=== PATIENT | female | born 1995 | race Caucasian/White ===

== ENCOUNTER 2016-09-19 10:53 | Emergency (ER) | payer OTHER ==
[2016-09-19 11:15] VITALS: O2SAT 100
[2016-09-19] MEDS ORDERED: NORCO 5/325 MG PO ONE (11:15)
[2016-09-19] MEDS ORDERED: NORCO 5/325 MG ONE (11:33)
--- NOTE | 2016-09-19 11:59 | ERPHSYRPT ---
- History of Present Illness Time Seen by Provider: 09/19/16 11:11 Source: patient Patient Subjective Stated Complaint: PT WAS SPEED WALKING AND NOW HAS PAIN TO RIGHT LOWER LEG, Triage Nursing Assessment: NO REDDNESS OR SWELLING TO LEG, WAS ABLE TO WALK IN. Physician History: CC: left leg pain Hx: 21 y/o patient was speed walking 2 days ago and felt pain in left leg. The pain continues and is in lower leg below knee. No other specific injury. Hurts to walk. States no prior hx of this. Not . Pain is moderately severe and worse with movement. Allergies/Adverse Reactions: Penicillins Allergy (Intermediate, Verified 09/19/16 11:16) Hives Home Medications: [id number] Estr/Ethin Estra [Seasonique 0.15-0.03-0.01 Tab] 1 each PO DAILY 12/17/13 [History] Albuterol 17 gm IH Q4HPRN PRN 12/18/13 [History] Dicyclomine HCl 20 mg [Bentyl 20 mg] 20 mg PO TID 12/01/14 [History] Topiramate [Topamax] 1 tab PO DAILY 07/22/16 [History] Hx Tetanus, Diphtheria Vaccination/Date Given: Yes Hx Influenza Vaccination/Date Given: Yes Hx Pneumococcal Vaccination/Date Given: No Immunizations Up to Date: Yes - Review of Systems Constitutional: No Fever, No Chills Respiratory: No Dyspnea Cardiac: No Chest Pain Musculoskeletal: Injury (left lower leg), No Back Pain, No Neck Pain Skin: No Rash Neurological: No Focal Weakness, No Headache, No Parasthesia - Past Medical History Pertinent Past Medical History: Yes Neurological History: Migraines ENT History: No Pertinent History Cardiac History: No Pertinent History Respiratory History: Asthma Endocrine Medical History: No Pertinent History Musculoskeletal History: No Pertinent History GI Medical History: Irritable Bowel History: No Pertinent History Psycho-Social History: No Pertinent History Female Reproductive Disorders: No Pertinent History - Past Surgical History Past Surgical History: Yes Neuro Surgical History: No Pertinent History Cardiac: No Pertinent History Respiratory: No Pertinent History Gastrointestinal: No Pertinent History Genitourinary: No Pertinent History Musculoskeletal: Orthopedic Surgery Female Surgical History: No Pertinent History Other Surgical History: EGD, shoulder rotator cuff repair x2 - Social History Smoking Status: Never smoker Exposure to second hand smoke: No Drug Use: none Patient Lives Alone: No - Female History Hx Last Menstrual Period: JULY - Nursing Vital Signs Nursing Vital Signs: Initial Vital Signs Temperature 98.3 F Temperature Source Oral Pulse Rate 79 Respiratory Rate 18 Blood Pressure [Right Arm] 115/59 Pain Intensity 0 - Physical Exam General Appearance: alert Eyes, Ears, Nose, Throat Exam: moist mucous membranes Neck Exam: non-tender, supple Cardiovascular/Respiratory Exam: regular rate/rhythm Hips Exam: bilateral: non-tender, normal inspection Legs Exam: right leg: non-tender, normal inspection Knees Exam: bilateral knee: non-tender, normal inspection Ankle Exam: bilateral ankle: non-tender, normal inspection Foot Exam: bilateral foot: non-tender, normal inspection Neuro/Tendon Exam: normal sensation, normal motor functions Mental Status Exam: alert, oriented x 3, cooperative Skin Exam: warm, dry SpO2 Interpretation: normal SpO2: 100 Oxygen Delivery: Room Air Comments: tender left proximal calf, no erythema, no swelling. Achilles intact. Pain in calf with active plantar flexion. - Course Nursing assessment & vital signs reviewed: Yes - Radiology Exams left lower leg X-ray Interpretation: Discussed w/ radiologist, Negative Ordered Tests: Active Orders 24 hr Category Date Time Status Cold Application STAT Care 09/19/16 11:15 Active Splint STAT Care 09/19/16 11:17 Active LOWER LEG Stat Exams 09/19/16 11:15 Completed Medication Summary Discontinued Medications Generic Name Dose Route Start Last Admin Trade Name Adelfo PRN Reason Stop Dose Admin Hydrocodone Bitart/Acetaminophen 1 tab 09/19/16 11:15 09/19/16 11:33 [place] 5/325 Mg PO 09/19/16 11:16 1 tab STAT ONE Administration Hydrocodone Bitart/Acetaminophen Confirm 09/19/16 11:33 [place] 5/325 Mg Administered 09/19/16 11:34 Dose 1 tab .ROUTE .STK-MED ONE - Progress Progress Note: 09/19/16 12:26 Motrin did not help at home. Rx norco. Splint and crutches. Advised follow up with Dr Gaines. May need MRI or sports medicine. Counseled pt/family regarding: diagnosis, need for follow-up, rad results - Departure Time of Disposition: 12:27 Departure Disposition: Home Clinical Impression: Gastrocnemius strain, left Qualifiers: Encounter type: initial encounter Qualified Code(s): S86.112A - Strain of other muscle(s) and tendon(s) of posterior muscle group at lower leg level, left leg, initial encounter Condition: Stable Critical Care Time: No Referrals: ISSA GAINES MD [Primary Care Provider] - Instructions: Calf Muscle Strain Additional Instructions: Splint, ice, crutches. Rx norco. Continue motrin every 6 hours[address] Call to see Dr Gaines in 1-2 days for recheck. Off work 2 days. Prescriptions: Hydrocodone Bit/Acetaminophen [[place] 5-325 Tablet] 1 each PO Q6H PRN PRN #15 tablet PRN Reason: Pain
--- NOTE | 2016-09-19 12:03 | XRAY ---
Indication: Posterior lower leg pain following exercising. No known injury. Comparison: None 2 views of the left lower leg demonstrates normal bones, articulation, and soft tissues.
[2016-09-19 12:20] VITALS: BP 115/59; PULSE 79
== END 2016-09-19 12:39 | disposition home or self-care (01) ==
LOC: ED 10:53
PROC: 2W3RX1Z Immobilization of Left Lower Leg using Splint (ICD-10-PCS; principal; 2016-09-19)
DX: S86.211A Strain of muscle(s) and tendon(s) of anterior muscle group at lower leg level, right leg, initial encounter (principal); Y93.01 Activity, walking, marching and hiking
CPT/HCPCS: 29505; 73590; 99284; A9270-GY

== ENCOUNTER 2017-04-17 21:03 | Emergency (ER) | payer OTHER ==
[2017-04-17] MEDS ORDERED: Pepcid 20 MG VIAL IV ONE ×2 (21:25→21:32)
[2017-04-17] MEDS ORDERED: Sodium Chloride 0.9% 1000 ML 1,000 ML IV STA (21:25)
[2017-04-17] MEDS ORDERED: Sodium Chloride 0.9% 1000 ML 1,000 ML ONE (21:32)
[2017-04-17 21:34] LABS: BASOPHIL % 0.1 % (0.0-0.4); Eosinophil % 1.1 % (0.00-5.0); Granulocytes % 55.3 % (36.0-66.0); Lymphocytes % 35.6 % (24.0-44.0); Mean Cell Volume 90.6 fl (78-100); Mean Corpuscular Hemoglobin 28.1 pg (26-32); Mean Platelet Volume 11.3 fl (6-9.5); Monocytes % 7.9 % (0.0-12.0); Platelet Count 181 K/mm3 (150-450); Red Blood Count 4.69 M/mm3 (4.1-5.4); Red Cell Distribution Width 13.6 % (11.5-14.0); White Blood Count 8.4 K/mm3 (4.0-10.5)
--- NOTE | 2017-04-17 21:37 | ERPHSYRPT ---
- History of Present Illness Time Seen by Provider: 04/17/17 21:19 Historian: patient Exam Limitations: no limitations Patient Subjective Stated Complaint: rectal bleeding x 1 day, abd pain around umbilicus Triage Nursing Assessment: pain around umbilicus, rectal bleeding x 4-5 episodes , bright red with "spots of dark red" Physician History: Pt started c/o periumbilical cramps, nausea, and bloody loose stools x 4-5 today. She had similar condition 3 years ago, when she underwent colonoscopy, and diagnosed with severe IBS, did not find any ulcers or other lesions, she has not been receiving any treatment recently, denies fever, vomiting, severe diarrhea, urinary complaints, no vaginal bleeding, but had some rectal pain upon defecating. Timing/Duration: today Activities at Onset: none Quality: cramping Abdominal Pain Onset Location: periumbilical Severity of Pain-Max: mild Severity of Pain-Current: mild Modifying Factors: Improves With: nothing Associated Symptoms: diarrhea, nausea Previous symptoms: same symptoms as today Allergies/Adverse Reactions: Penicillins Allergy (Intermediate, Verified 09/19/16 11:16) Hives Home Medications: [id number] Estr/Ethin Estra [Seasonique 0.15-0.03-0.01 Tab] 1 each PO DAILY 12/17/13 [History] Albuterol 17 gm IH Q4HPRN PRN 12/18/13 [History] Dicyclomine HCl 20 mg [Bentyl 20 mg] 20 mg PO TID 12/01/14 [History] Hx Tetanus, Diphtheria Vaccination/Date Given: Yes Hx Influenza Vaccination/Date Given: Yes Hx Pneumococcal Vaccination/Date Given: No Immunizations Up to Date: Yes - Review of Systems Constitutional: No Symptoms Abdominal/Gastrointestinal: Abdominal Pain, Nausea, Diarrhea, Hematochezia All Other Systems: Reviewed and Negative - Past Medical History Pertinent Past Medical History: Yes Neurological History: Migraines ENT History: No Pertinent History Cardiac History: No Pertinent History Respiratory History: Asthma Endocrine Medical History: No Pertinent History Musculoskeletal History: No Pertinent History GI Medical History: Irritable Bowel History: No Pertinent History Psycho-Social History: No Pertinent History Female Reproductive Disorders: No Pertinent History - Past Surgical History Past Surgical History: Yes Neuro Surgical History: No Pertinent History Cardiac: No Pertinent History Respiratory: No Pertinent History Gastrointestinal: No Pertinent History Genitourinary: No Pertinent History Musculoskeletal: Orthopedic Surgery Female Surgical History: No Pertinent History Other Surgical History: EGD, shoulder repair x2 - Social History Smoking Status: Never smoker Exposure to second hand smoke: No Drug Use: none Patient Lives Alone: No - Female History Hx Last Menstrual Period: every three months on Seasonique; due in 2.5 weeks Hx Now: No - Nursing Vital Signs Nursing Vital Signs: Initial Vital Signs Temperature 98.8 F 04/17/17 21:17 Pulse Rate 93 H 04/17/17 21:17 Respiratory Rate 20 04/17/17 21:17 Blood Pressure 127/70 04/17/17 21:17 O2 Sat by Pulse Oximetry 98 04/17/17 21:17 Pain Scale Pain Intensity 3 - Physical Exam General Appearance: no apparent distress Eye Exam: eyes nml inspection Ears, Nose, Throat Exam: normal ENT inspection Neck Exam: normal inspection, non-tender Respiratory Exam: normal breath sounds Cardiovascular Exam: regular rate/rhythm, normal heart sounds, normal peripheral pulses, No murmur Gastrointestinal/Abdomen Exam: soft, normal bowel sounds, tenderness (mild, diffuse, lower abdominal), No distention, No mass, No guarding, No ecchymosis, No pulsatile mass, No hernia Rectal Exam: normal rectal tone, No mass, No hemorrhoids, No black stool, No blood, No tenderness, No decreased tone Back Exam: normal inspection, No CVA tenderness Extremity Exam: normal inspection Neurologic Exam: alert, oriented x 3, cooperative, normal mood/affect Skin Exam: normal color, warm, dry Lymphatic Exam: No adenopathy SpO2: 98 Oxygen Delivery: Room Air - CT Exams Abdomen/Pelvis CT Interpretation: Negative Ordered Tests: Active Orders 24 hr Category Date Time Status Clean Catch Urine Specimen STAT Care 04/17/17 21:21 Active IV Insertion STAT Care 04/17/17 21:21 Active NPO (ED) STAT Care 04/17/17 21:25 Active Orthostatic Vital Signs STAT Care 04/17/17 21:32 Active ABDOMEN AND PELVIS W CONTRAST [CT] Stat Exams 04/17/17 21:25 Taken CBC W DIFF Stat Lab 04/17/17 21:28 Completed CMP Stat Lab 04/17/17 21:28 Completed HCG,QUALITATIVE URINE Stat Lab 04/17/17 21:32 Completed LIPASE Stat Lab 04/17/17 21:28 Completed Occult Blood,Stool Other Stat Lab 04/17/17 21:33 Completed PROTIME WITH INR Stat Lab 04/17/17 21:28 Completed UA W/ MICROSCOPIC Stat Lab 04/17/17 21:28 Completed Medication Summary Discontinued Medications Generic Name Dose Route Start Last Admin Trade Name Freq PRN Reason Stop Dose Admin Famotidine 20 mg 04/17/17 21:25 04/17/17 21:35 Pepcid 20 Mg Vial IV 04/17/17 21:26 20 mg STAT ONE Administration Famotidine Confirm 04/17/17 21:32 Pepcid 20 Mg Vial Administered 04/17/17 21:33 Dose 20 mg IV .STK-MED ONE Sodium Chloride 1,000 mls @ 999 mls/hr 04/17/17 21:25 04/17/17 21:35 Sodium Chloride 0.9% 1000 Ml IV 04/17/17 22:25 999 mls/hr .Q1H1M STA Administration Sodium Chloride Confirm 04/17/17 21:32 Sodium Chloride 0.9% 1000 Ml Administered 04/17/17 21:33 Dose 1,000 mls @ ud .ROUTE .STK-MED ONE Lab/Rad Data: Laboratory Result Diagrams 04/17/17 21:28 04/17/17 21:28 Laboratory Results 04/17/17 04/17/17 04/17/17 Range/Units 21:33 21:32 21:28 WBC (4.0-10.5) K/mm3 RBC (4.1-5.4) M/mm3 Hgb (12.0-16.0) gm/dl Hct (35-47) % MCV (78-100) fl MCH (26-32) pg MCHC (32-36) g/dl RDW (11.5-14.0) % Plt Count (150-450) K/mm3 MPV (6-9.5) fl Gran % (36.0-66.0) % Lymphocytes % (24.0-44.0) % Monocytes % (0.0-12.0) % Eosinophils % (0.00-5.0) % Basophils % (0.0-0.4) % Basophils # (0-0.4) INR 0.99 (0.8-3.0) Sodium (136-145) mEq/L Potassium (3.5-5.1) mEq/L Chloride (98-107) mEq/L Carbon Dioxide (21-32) mEq/L Anion Gap (5-15) MEQ/L BUN (9-20) mg/dL Creatinine (0.55-1.30) mg/dl Estimated GFR ML/MIN Glucose (70-110) MG/DL Calcium (8.5-10.1) mg/dL Total Bilirubin (0.2-1.0) mg/dL AST (15-37) U/L ALT (12-78) U/L Alkaline Phosphatase (46-116) U/L Serum Total Protein (6.4-8.2) gm/dL Albumin (3.4-5.0) g/dL Lipase (73-393) U/L Ur Collection Type Urine Color (YELLOW) Urine Appearance (CLEAR) Urine pH (5-6) Ur Specific [place] (1.005-1.025) Urine Protein (Negative) Urine Ketones (NEGATIVE) Urine Blood (0-5) Kleber/ul Urine Nitrite (NEGATIVE) Urine Bilirubin (NEGATIVE) Urine Urobilinogen (0-1) mg/dL Ur Leukocyte Esterase (NEGATIVE) Urine Microscopic RBC (0-2) /HPF Ur Epithelial Cells (FEW) /HPF Urine Bacteria (NEGATIVE) /HPF Urine Culture Reflexed (NO) Urine Glucose (NEGATIVE) mg/dL Urine HCG, Qual NEGATIVE (Negative) Stool Occult Blood NEGATIVE (Negative) Specimen Received 04/17/17 04/17/17 04/17/17 Range/Units 21:28 21:28 21:28 WBC 8.4 (4.0-10.5) K/mm3 RBC 4.69 (4.1-5.4) M/mm3 Hgb 13.2 (12.0-16.0) gm/dl Hct 42.5 (35-47) % MCV 90.6 (78-100) fl MCH 28.1 (26-32) pg MCHC 31.1 L (32-36) g/dl RDW 13.6 (11.5-14.0) % Plt Count 181 (150-450) K/mm3 MPV 11.3 H (6-9.5) fl Gran % 55.3 (36.0-66.0) % Lymphocytes % 35.6 (24.0-44.0) % Monocytes % 7.9 (0.0-12.0) % Eosinophils % 1.1 (0.00-5.0) % Basophils % 0.1 (0.0-0.4) % Basophils # 0.01 (0-0.4) INR (0.8-3.0) Sodium 140 (136-145) mEq/L Potassium 3.6 (3.5-5.1) mEq/L Chloride 106 (98-107) mEq/L Carbon Dioxide 29.0 (21-32) mEq/L Anion Gap 8.5 (5-15) MEQ/L BUN 10 (9-20) mg/dL Creatinine 0.73 (0.55-1.30) mg/dl Estimated GFR > 60 ML/MIN Glucose 94 (70-110) MG/DL Calcium 9.0 (8.5-10.1) mg/dL Total Bilirubin 0.20 (0.2-1.0) mg/dL AST 16 (15-37) U/L ALT 13 (12-78) U/L Alkaline Phosphatase 74 (46-116) U/L Serum Total Protein 7.6 (6.4-8.2) gm/dL Albumin 3.8 (3.4-5.0) g/dL Lipase 98 (73-393) U/L Ur Collection Type CLEAN CATCH Urine Color LT.YELLOW (YELLOW) Urine Appearance CLEAR (CLEAR) Urine pH 8.0 (5-6) Ur Specific [place] 1.005 (1.005-1.025) Urine Protein NEGATIVE (Negative) Urine Ketones NEGATIVE (NEGATIVE) Urine Blood 250 (0-5) Kleber/ul Urine Nitrite NEGATIVE (NEGATIVE) Urine Bilirubin NEGATIVE (NEGATIVE) Urine Urobilinogen NORMAL (0-1) mg/dL Ur Leukocyte Esterase NEGATIVE (NEGATIVE) Urine Microscopic RBC 50-100 (0-2) /HPF Ur Epithelial Cells FEW (FEW) /HPF Urine Bacteria FEW (NEGATIVE) /HPF Urine Culture Reflexed NO (NO) Urine Glucose NEGATIVE (NEGATIVE) mg/dL Urine HCG, Qual (Negative) Stool Occult Blood (Negative) Specimen Received [id number] - Progress Progress: improved Progress Note: 04/17/17 23:12 Pt has been afebrile, denies severe pain or nausea, she is stable hemodynamically, not orthostatic. I discussed our results with her and her mother, they agreed with the plan to discharge her and continue diet, and close follow up with her PCP, return if any changtes. - Departure Time of Disposition: 23:14 Departure Disposition: Home Clinical Impression: Rectal bleeding Condition: Stable Critical Care Time: No Referrals: ISSA GAINES MD [Primary Care Provider] - Instructions: Gastrointestinal Bleeding, Hemorrhoids Additional Instructions: Rest x 2-3 days, drink plenty of fluids, return if severe bleeding, pain, vomiting, fever> 101 F! 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 Prescriptions: Hydrocortisone Acetate [Anusol-Hc] 25 mg RC DAILY PRN PRN #10 supp.rect PRN Reason: Pain
[2017-04-17 21:50] LABS: Bilirubin NEGATIVE (NEGATIVE); Blood 250 Ery/ul (0-5); COMPLETE URINE MICROSCOPIC? YES; Collection Type CLEAN CATCH; Glucose NEGATIVE (NEGATIVE); INR 0.99 (0.8-3.0); Leukocyte Esterase NEGATIVE (NEGATIVE)
[2017-04-17 21:53] LABS: ADD URINE CULTURE? NO (NO); Bacteria FEW /HPF (NEGATIVE); Epithelial Cells FEW /HPF (FEW)
[2017-04-17 21:55] LABS: ALBUMIN 3.8 g/dL (3.4-5.0); ALKALINE PHOSPHATASE 74 U/L (46-116); ANION GAP 8.5 MEQ/L (5-15); BLOOD UREA NITROGEN 10 mg/dL (9-20); CHLORIDE 106 mEq/L (98-107); Glucose 94 MG/DL (70-110); LIPASE 98 U/L (73-393); Potassium 3.6 mEq/L (3.5-5.1); SGOT/AST 16 U/L (15-37); SGPT/ALT 13 U/L (12-78); SODIUM 140 mEq/L (136-145); Total Protein 7.6 gm/dL (6.4-8.2)
[2017-04-17 23:19] VITALS: BP 124/71; PULSE 92; O2SAT 99
--- NOTE | 2017-04-18 09:13 | XRAY ---
Indication: Abdomen/rectal pain. Rectal bleeding. History IBS. Multiple contiguous axial images obtained through the abdomen and pelvis using 80 cc Isovue 370 contrast only. Comparison: None Lung bases are clear. Heart is not enlarged. Small fluid in the distal esophagus presumed from gastroesophageal reflux. Stomach is distended with food/fluid and a presumed pill. Noncontrasted bowel loops appear nonobstructed. There is moderate diffuse scattered colonic fecal debris throughout. Normal appendix. No free fluid/air. Uterus is dextrorotated. Gallbladder contracted without gallstones. Remaining liver, pancreas, spleen, adrenal glands, kidneys, ureters, bladder, and aorta appear unremarkable. No pathologic retroperitoneal lymphadenopathy. Osseous structures intact. Impression: 1. Fecal stasis without obstruction. 2. Remaining CT abdomen/pelvis with contrast exam is negative. Comment: Preliminary interpretation was made by [facility]. No critical discrepancy. CT DI 18.88
== END 2017-04-17 23:26 | disposition home or self-care (01) ==
LOC: ED 21:03
DX: K62.5 Hemorrhage of anus and rectum (principal); R10.9 Unspecified abdominal pain; R11.0 Nausea; R19.7 Diarrhea, unspecified
CPT/HCPCS: 36000; 36415; 74177; 80053; 81000; 82272; 83690; 84703; 85025; 85610; 96360; 96374; 99284

== ENCOUNTER 2017-05-25 16:14 | Emergency (ER) | payer OTHER ==
[2017-05-25 16:23] VITALS: O2SAT 98
--- NOTE | 2017-05-25 16:35 | ERPHSYRPT ---
- History of Present Illness Time Seen by Provider: 05/25/17 16:28 Source: patient Exam Limitations: no limitations Patient Subjective Stated Complaint: pt here for sore throat for 2-3 days. no fever. Triage Nursing Assessment: pt walked in, resp easy, skin w/d pink. Physician History: 21-year-old white female arrives with complaint of sore throat for 3 days she states she might of had a low-grade fever she states she vomited 3 times today. Past medical history: Irritable bowel Past surgical history right shoulder surgery Timing/Duration: day(s) (2 days) Severity: moderate Modifying Factors: Improves With: nothing Associated Symptoms: nausea, vomiting, other (sore throat), No abdominal pain, No shortness of breath, No heartburn, No diaphoresis, No cough, No chills, No chest pain, No fever, No headaches, No loss of appetite, No malaise, No syncope , No seizure, No weakness Allergies/Adverse Reactions: Penicillins Allergy (Intermediate, Verified 05/25/17 16:23) Hives Home Medications: [id number] Estr/Ethin Estra [Seasonique 0.15-0.03-0.01 Tab] 1 each PO DAILY 12/17/13 [History] Albuterol 17 gm IH Q4HPRN PRN 12/18/13 [History] Dicyclomine HCl 20 mg [Bentyl 20 mg] 20 mg PO TID 12/01/14 [History] Hx Tetanus, Diphtheria Vaccination/Date Given: Yes Hx Influenza Vaccination/Date Given: Yes Hx Pneumococcal Vaccination/Date Given: No Immunizations Up to Date: Yes - Review of Systems Constitutional: Fever, No Chills Eyes: No Symptoms Ears, Nose, & Throat: Throat Pain, No Ear Pain, No Ear Discharge, No Hearing Changes, No Tinnitus, No Nose Pain, No Nose Congestion, No Nose Discharge, No Sinus Drainage, No Epistaxis, No Mouth Pain, No Mouth Swelling, No Loose Teeth, No Throat Swelling, No Hoarse, No Painful Swallowing, No Snoring, No Stridor Respiratory: No Cough, No Dyspnea Cardiac: No Symptoms Abdominal/Gastrointestinal: Nausea, Vomiting, No Abdominal Pain, No Diarrhea, No Constipation, No Hematemesis, No Hematochezia, No Melena, No Dysphagia, No Appetite Changes Genitourinary Symptoms: No Symptoms Musculoskeletal: No Back Pain, No Neck Pain Skin: No Rash Neurological: No Dizziness, No Focal Weakness, No Sensory Changes Psychological: No Symptoms Endocrine: No Symptoms All Other Systems: Reviewed and Negative - Past Medical History Pertinent Past Medical History: Yes Neurological History: Migraines ENT History: No Pertinent History Cardiac History: No Pertinent History Respiratory History: Asthma Endocrine Medical History: No Pertinent History Musculoskeletal History: No Pertinent History GI Medical History: Irritable Bowel History: No Pertinent History Psycho-Social History: No Pertinent History Female Reproductive Disorders: No Pertinent History - Past Surgical History Past Surgical History: Yes Neuro Surgical History: No Pertinent History Cardiac: No Pertinent History Respiratory: No Pertinent History Gastrointestinal: No Pertinent History Genitourinary: No Pertinent History Musculoskeletal: Orthopedic Surgery Female Surgical History: No Pertinent History Other Surgical History: right shoulder - Social History Smoking Status: Never smoker Exposure to second hand smoke: No Drug Use: none Patient Lives Alone: No - Female History Hx Last Menstrual Period: month ago Hx Now: No - Nursing Vital Signs Nursing Vital Signs: Initial Vital Signs Temperature 99.0 F 05/25/17 16:17 Pulse Rate 95 H 05/25/17 16:17 Respiratory Rate 16 05/25/17 16:17 Blood Pressure 126/66 05/25/17 16:17 O2 Sat by Pulse Oximetry 98 05/25/17 16:17 Pain Scale Pain Intensity 4 - Physical Exam General Appearance: no apparent distress, alert Eye Exam: PERRL/EOMI, eyes nml inspection Ears, Nose, Throat Exam: normal ENT inspection, TMs normal, pharynx normal, moist mucous membranes Neck Exam: normal inspection, non-tender, supple, full range of motion Respiratory Exam: normal breath sounds, lungs clear, No respiratory distress Cardiovascular Exam: regular rate/rhythm, normal heart sounds, normal peripheral pulses Gastrointestinal/Abdomen Exam: soft, normal bowel sounds, No tenderness, No mass Back Exam: normal inspection, normal range of motion, No CVA tenderness, No vertebral tenderness Extremity Exam: normal inspection, normal range of motion, pelvis stable Neurologic Exam: alert, oriented x 3, 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, 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, normal mood/affect, nml cerebellar function, nml station & gait, sensation nml, No motor deficits Skin Exam: normal color, warm, dry, No rash Lymphatic Exam: No adenopathy SpO2 Interpretation: normal (98%) SpO2: 98 Oxygen Delivery: Room Air - Course Nursing assessment & vital signs reviewed: Yes Ordered Tests: Active Orders 24 hr Category Date Time Status CULTURE, THROAT Stat Lab 05/25/17 17:09 Received STREP SCREEN-BETA A Stat Lab 05/25/17 17:09 Completed Lab/Rad Data: Laboratory Results 05/25/17 Range/Units 17:09 Streptococcus Screen NEGATIVE (Negative) - Progress Progress: improved Progress Note: 05/25/17 17:37 Patient's strep test is negative. Will discharge patient. Patient return home plenty fluids Tylenol every 4 hours as needed for pain. Will give patient a slip for work for tomorrow. - Departure Time of Disposition: 17:38 Departure Disposition: Home Clinical Impression: Throat pain in adult, Viral pharyngitis Condition: Fair Critical Care Time: No Referrals: ISSA GAINES MD [Primary Care Provider] - Additional Instructions: Return home, Plenty of fluids. Tylenol every 4 hours as needed for pain or temperature greater than 100.5. Follow-up with your family symptoms are worse, no better in 48 hours, or persist longer than one week. Return for acute distress or for severe symptoms.
[2017-05-25 18:05] VITALS: BP 131/77; PULSE 101
== END 2017-05-25 18:05 | disposition home or self-care (01) ==
LOC: ED 16:14
DX: R07.0 Pain in throat (principal); J02.9 Acute pharyngitis, unspecified
CPT/HCPCS: 87070; 87430; 99282

== ENCOUNTER 2017-10-20 15:02 | Emergency (ER) | payer OTHER ==
--- NOTE | 2017-10-20 15:29 | ERPHSYRPT ---
- History of Present Illness Time Seen by Provider: 10/20/17 15:29 Source: patient Exam Limitations: no limitations Patient Subjective Stated Complaint: onset of dizziness and nausea since 11am today while at work. Triage Nursing Assessment: alert and ambulatory with no gait difficulty observed. states onset of dizziness while at work with nause and vomited x2. denies diarrhea. moon has IBS so always has some abd discomfort but no differtent today. denies diarrhea. abdomen soft non tender on palp. Physician History: The patient is a 22-year-old female with her mother complaining of some nausea and vomiting while at work today. She also had 2 or 3 brief spells of "seeing black". She did not fall or lose consciousness. She has taken a few minutes off from work to be seen. She went to quick [facility] to be seen quickly but was told to come to the ER. She tells me that she would like some medicine to feel better and go back to work by 4:00. She declines any blood work. She would like something for her nausea and vomiting. She vomited twice. Her past medical history is significant for migraine headaches. Timing/Duration: today Severity: mild Modifying Factors: Improves With: eating Associated Symptoms: nausea, vomiting, No abdominal pain, No fever Allergies/Adverse Reactions: Penicillins Allergy (Intermediate, Verified 05/25/17 16:23) Hives Home Medications: [id number] Estr/Ethin Estra [Seasonique 0.15-0.03-0.01 Tab] 1 each PO DAILY 12/17/13 [History] Albuterol 17 gm IH Q4HPRN PRN 12/18/13 [History] Dicyclomine HCl 20 mg [Bentyl 20 mg] 20 mg PO TID 12/01/14 [History] Hx Tetanus, Diphtheria Vaccination/Date Given: Yes Hx Influenza Vaccination/Date Given: Yes Hx Pneumococcal Vaccination/Date Given: No - Review of Systems Constitutional: No Fever, No Chills Eyes: No Symptoms Ears, Nose, & Throat: No Symptoms Respiratory: No Cough, No Dyspnea Cardiac: No Chest Pain, No Edema, No Syncope Abdominal/Gastrointestinal: Nausea, Vomiting, No Abdominal Pain Genitourinary Symptoms: No Dysuria Musculoskeletal: No Back Pain, No Neck Pain Skin: No Rash Neurological: No Dizziness, No Focal Weakness, No Sensory Changes Psychological: No Symptoms Endocrine: No Symptoms Hematologic/Lymphatic: No Symptoms Immunological/Allergic: No Symptoms All Other Systems: Reviewed and Negative - Past Medical History Pertinent Past Medical History: Yes Neurological History: Migraines ENT History: No Pertinent History Cardiac History: No Pertinent History Respiratory History: Asthma Endocrine Medical History: No Pertinent History Musculoskeletal History: No Pertinent History GI Medical History: Irritable Bowel History: No Pertinent History Psycho-Social History: No Pertinent History Female Reproductive Disorders: No Pertinent History - Past Surgical History Past Surgical History: Yes Neuro Surgical History: No Pertinent History Cardiac: No Pertinent History Respiratory: No Pertinent History Gastrointestinal: No Pertinent History Genitourinary: No Pertinent History Musculoskeletal: Orthopedic Surgery Female Surgical History: No Pertinent History Other Surgical History: right shoulder - Social History Smoking Status: Never smoker Exposure to second hand smoke: No Drug Use: none Patient Lives Alone: No - Female History Hx Last Menstrual Period: 2 days Hx Now: No - Nursing Vital Signs Nursing Vital Signs: Initial Vital Signs Temperature 97.8 F 10/20/17 15:20 Pulse Rate 82 10/20/17 15:20 Respiratory Rate 16 10/20/17 15:20 Blood Pressure 150/86 10/20/17 15:20 O2 Sat by Pulse Oximetry 97 10/20/17 15:20 Pain Scale Pain Intensity 0 - Physical Exam General Appearance: no apparent distress, alert Eye Exam: PERRL/EOMI, eyes nml inspection Ears, Nose, Throat Exam: normal ENT inspection, TMs normal, pharynx normal, moist mucous membranes Neck Exam: normal inspection, non-tender, supple, full range of motion Respiratory Exam: normal breath sounds, lungs clear, No respiratory distress Cardiovascular Exam: regular rate/rhythm, normal heart sounds, normal peripheral pulses Gastrointestinal/Abdomen Exam: soft, normal bowel sounds, No tenderness, No mass Pelvic Exam: not done Rectal Exam: not done Back Exam: normal inspection, normal range of motion, No CVA tenderness, No vertebral tenderness Extremity Exam: normal inspection, normal range of motion, pelvis stable Neurologic Exam: alert, oriented x 3, cooperative, normal mood/affect, nml cerebellar function, nml station & gait, sensation nml, No motor deficits Skin Exam: normal color, warm, dry, No rash Lymphatic Exam: No adenopathy SpO2 Interpretation: normal SpO2: 97 - Progress Progress: improved Counseled pt/family regarding: diagnosis - Departure Time of Disposition: :46 Departure Disposition: Home Clinical Impression: Vomiting Condition: Stable Critical Care Time: No Referrals: ISSA GAINES MD [Primary Care Provider] - Additional Instructions: You had vomiting today. The "blackout" that you experienced was likely due to a migrainous aura without headache. You were given Zofran ODT 4 mg in the ER. You had declined any blood work or further analysis because you want to get back to work as quickly as possible. Follow-up with your primary care doctor as needed.
[2017-10-20 15:33] VITALS: BP 150/86; PULSE 82; O2SAT 97
[2017-10-20] MEDS ORDERED: ZOFRAN ODT 4 MG PO ONE (15:45)
[2017-10-20] MEDS ORDERED: ZOFRAN ODT 4 MG ONE (15:47)
== END 2017-10-20 16:05 | disposition home or self-care (01) ==
LOC: ED 15:02
DX: R11.2 Nausea with vomiting, unspecified (principal)
CPT/HCPCS: 99283; Q0162

== ENCOUNTER 2018-02-09 22:39 | Emergency (ER) | payer OTHER ==
[2018-02-09 23:06] VITALS: BP 142/90; PULSE 94; O2SAT 100
[2018-02-09] MEDS ORDERED: Zithromax 250 MG TABLET PO ONE (23:17)
--- NOTE | 2018-02-09 23:23 | ERPHSYRPT ---
- History of Present Illness Time Seen by Provider: 02/09/18 23:00 Source: patient Patient Subjective Stated Complaint: pt states approx 1600 this pm she was eating an egg roll and rice and started choking on her food; pt was able to dislodge the food but states since incident she feels like there is something stuck in her throat; pt denies any other distress or discomfort. Triage Nursing Assessment: pt a&o x3; skin p, w, & d; ambulated to room per self ; mother at bedside; no acutre distress upon arrival. Physician History: PATIENT COMPLAINS OF SORETHROAT AND PRODUCTIVE COUGH FOR 2 WEEKS, LOW GRADE FEVER. DENIES DYSPNEA OR DIFFICULTY SWALLOWING. Timing/Duration: week(s) Cough Quality/Degree: productive cough Possible Cause: occasional episodes Modifying Factors: Improves With: coughing Associated Symptoms: fever, sore throat International travel in last 2 weeks: No Allergies/Adverse Reactions: Penicillins Allergy (Intermediate, Verified 02/09/18 23:06) Hives Home Medications: [id number] Estr/Ethin Estra [Seasonique 0.15-0.03-0.01 Tab] 1 each PO DAILY 12/17/13 [History] Albuterol 17 gm IH Q4HPRN PRN 12/18/13 [History] Dicyclomine HCl 20 mg [Bentyl 20 mg] 20 mg PO TID 12/01/14 [History] Hx Tetanus, Diphtheria Vaccination/Date Given: Yes Hx Influenza Vaccination/Date Given: Yes Hx Pneumococcal Vaccination/Date Given: No Immunizations Up to Date: No - Review of Systems Constitutional: No Fever, No Chills Eyes: No Symptoms Ears, Nose, & Throat: Throat Pain Respiratory: No Cough, No Dyspnea Cardiac: No Symptoms, No Chest Pain, No Edema, No Syncope Abdominal/Gastrointestinal: No Abdominal Pain, No Nausea, No Vomiting, No Diarrhea Genitourinary Symptoms: No Dysuria Musculoskeletal: No Back Pain, No Neck Pain Skin: No Rash Neurological: No Dizziness, No Focal Weakness, No Sensory Changes Psychological: No Symptoms Endocrine: No Symptoms All Other Systems: Reviewed and Negative - Past Medical History Pertinent Past Medical History: Yes Neurological History: Migraines ENT History: No Pertinent History Cardiac History: No Pertinent History Respiratory History: Asthma Endocrine Medical History: No Pertinent History Musculoskeletal History: No Pertinent History GI Medical History: Irritable Bowel History: No Pertinent History Psycho-Social History: No Pertinent History Female Reproductive Disorders: No Pertinent History - Past Surgical History Past Surgical History: Yes Neuro Surgical History: No Pertinent History Cardiac: No Pertinent History Respiratory: No Pertinent History Gastrointestinal: No Pertinent History Genitourinary: No Pertinent History Musculoskeletal: Orthopedic Surgery Female Surgical History: No Pertinent History Other Surgical History: right shoulder - Social History Smoking Status: Never smoker Exposure to second hand smoke: No Drug Use: none Patient Lives Alone: Yes - Female History Hx Last Menstrual Period: 02/03/2018 Hx Now: No - Nursing Vital Signs Nursing Vital Signs: Initial Vital Signs Temperature 97.5 F 02/09/18 22:46 Pulse Rate 94 H 02/09/18 22:46 Respiratory Rate 18 02/09/18 22:46 Blood Pressure 142/90 02/09/18 22:46 O2 Sat by Pulse Oximetry 100 02/09/18 22:46 Pain Scale Pain Intensity 2 - Physical Exam General Appearance: no apparent distress, alert Eye Exam: PERRL/EOMI, eyes nml inspection Ears, Nose, Throat Exam: TMs normal, pharynx normal, moist mucous membranes, pharyngeal erythema, tonsillar exudate Neck Exam: normal inspection, non-tender, supple, full range of motion Respiratory Exam: normal breath sounds, lungs clear, No respiratory distress Cardiovascular Exam: regular rate/rhythm, normal heart sounds Gastrointestinal/Abdomen Exam: No tenderness Back Exam: normal inspection, No CVA tenderness, No vertebral tenderness Extremity Exam: normal inspection, normal range of motion Neurologic Exam: alert, oriented x 3, cooperative, normal mood/affect, sensation nml, No motor deficits Skin Exam: normal color, warm, dry, No rash Lymphatic Exam: No adenopathy SpO2: 100 Oxygen Delivery: Room Air Ordered Tests: Medication Summary Discontinued Medications Generic Name Dose Route Start Last Admin Trade Name Freq PRN Reason Stop Dose Admin Azithromycin 500 mg 02/09/18 23:17 02/09/18 23:28 Zithromax 250 Mg Tablet PO 02/09/18 23:18 500 mg STAT ONE Administration Azithromycin Confirm 02/09/18 23:24 Zithromax 250 Mg Tablet Administered 02/09/18 23:25 Dose 500 mg .ROUTE .[employer] ONE Lab/Rad Data: Laboratory Results 10/12/18 Range/Units 23:10 Group A Strep Antibody NEGATIVE (NEGATIVE) - Progress Progress Note: 02/09/18 23:21 ZITHROMAX 500MG ORALLY Counseled pt/family regarding: lab results, diagnosis - Departure Time of Disposition: 00:02 Departure Disposition: Home Clinical Impression: ACUTE EXUDATIVE PHARYNGITIS Condition: Stable Critical Care Time: No Referrals: ISSA GAINES MD [Primary Care Provider] - Additional Instructions: TYLENOL OR MOTRIN NEEDED FOR PAIN. ANTIBIOTIC ZITHROMAX 250MG, 2 TABLETS DAY 1 FOLLOWED BY 1 TABLET DAILY FOR 4 DAYS. TAKE OVER THE COUNTER COUGH SYRUP FOR COUGHING. Prescriptions: Azithromycin 250 mg [Zithromax 250 MG TABLET] 250 mg PO ZPACK #6 tablet
[2018-02-09] MEDS ORDERED: Zithromax 250 MG TABLET ONE (23:24)
== END 2018-02-10 00:14 | disposition home or self-care (01) ==
LOC: ED 22:39
DX: J02.9 Acute pharyngitis, unspecified (principal)
CPT/HCPCS: 87651; 99283; A9270-GY

== ENCOUNTER 2018-09-06 22:15 | Emergency (ER) | payer OTHER ==
--- NOTE | 2018-09-06 22:37 | ERPHSYRPT ---
- History of Present Illness Time Seen by Provider: 09/06/18 22:37 Allergies/Adverse Reactions: Penicillins Allergy (Intermediate, Verified 02/09/18 23:06) Hives Home Medications: [id number] Estr/Ethin Estra [Seasonique 0.15-0.03-0.01 Tab] 1 each PO DAILY 12/17/13 [History] Albuterol 17 gm IH Q4HPRN PRN 12/18/13 [History] Dicyclomine HCl 20 mg [Bentyl 20 mg] 20 mg PO TID 12/01/14 [History] Hx Tetanus, Diphtheria Vaccination/Date Given: Yes Hx Influenza Vaccination/Date Given: Yes Hx Pneumococcal Vaccination/Date Given: No - Past Medical History Pertinent Past Medical History: Yes Neurological History: Migraines ENT History: No Pertinent History Cardiac History: No Pertinent History Respiratory History: Asthma Endocrine Medical History: No Pertinent History Musculoskeletal History: No Pertinent History GI Medical History: Irritable Bowel History: No Pertinent History Psycho-Social History: No Pertinent History Female Reproductive Disorders: No Pertinent History - Past Surgical History Past Surgical History: Yes Neuro Surgical History: No Pertinent History Cardiac: No Pertinent History Respiratory: No Pertinent History Gastrointestinal: No Pertinent History Genitourinary: No Pertinent History Musculoskeletal: Orthopedic Surgery Female Surgical History: No Pertinent History Other Surgical History: right shoulder - Social History Smoking Status: Never smoker Exposure to second hand smoke: No Drug Use: none Patient Lives Alone: Yes - Departure Referrals: ISSA GAINES MD [Primary Care Provider] -
== END 2018-09-06 22:54 | disposition left against medical advice (07) ==
LOC: ED 22:15
DX: Z53.9 Procedure and treatment not carried out, unspecified reason (principal)
CPT/HCPCS: 99281

== ENCOUNTER 2019-06-09 21:58 | Emergency (ER) | payer OTHER ==
[2019-06-09 22:21] VITALS: O2SAT 97
--- NOTE | 2019-06-09 22:27 | ERPHSYRPT ---
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 pt denies abd pain, consipation, and diarrhea. pt states hx IBS and migraines, recently started new migraine medication Monday. pt states last colonoscopy done [address] Gaines. pt reports having hx blood in stool but always r/t constipation. reports "kind of a lot of dark colored blood." VS are WNL on arrival to ED. pt ambulatory to room, placed in gown and hooked up to monitor. A&Ox4. lung sounds clear and equal bilat, heart sounds clear, bowel sounds audible in all 4 quads. no noted skin issues or edema. cap refil <3 sec. 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 Cant exactl;y specify how much but was more than usual , denies any abdominal pain / taking any blood thinners etc. blood was not mixed with stool and no h/o dark stool /epigastric pain .last colonoscopy done was 5 years ago Timing/Duration: today, resolved prior to arrival, sudden, improved Severity: mild Modifying Factors: Improves With: nothing Associated Symptoms: No nausea, No vomiting, No abdominal pain, No shortness of breath, No heartburn, No chest pain, No loss of appetite, No syncope, No weakness Allergies/Adverse Reactions: Penicillins Allergy (Intermediate, Verified 06/09/19 22:22) Hives Home Medications: a-[id number]-Noj Estr/Ethin Estra [Seasonique 0.15-0.03-0.01 Tab] 1 each PO DAILY 12/17/13 [History] Albuterol 17 gm IH Q4HPRN PRN 12/18/13 [History] Dicyclomine HCl 20 mg [Bentyl 20 mg] 20 mg PO TID 12/01/14 [History] Hx Tetanus, Diphtheria Vaccination/Date Given: Yes Hx Influenza Vaccination/Date Given: Yes Hx Pneumococcal Vaccination/Date Given: No Immunizations Up to Date: Yes - Review of Systems Constitutional: No Symptoms Eyes: No Symptoms Ears, Nose, & Throat: No Symptoms Respiratory: No Symptoms Cardiac: No Symptoms Abdominal/Gastrointestinal: Hematochezia Genitourinary Symptoms: No Symptoms Musculoskeletal: No Symptoms Skin: No Symptoms Neurological: No Symptoms Psychological: Anxiety Endocrine: No Symptoms Hematologic/Lymphatic: No Symptoms Immunological/Allergic: No Symptoms - Past Medical History Pertinent Past Medical History: Yes Neurological History: Migraines ENT History: No Pertinent History Cardiac History: No Pertinent History Respiratory History: Asthma Endocrine Medical History: No Pertinent History Musculoskeletal History: Fibromyalgia GI Medical History: Irritable Bowel History: No Pertinent History Psycho-Social History: No Pertinent History Female Reproductive Disorders: No Pertinent History - Past Surgical History Past Surgical History: Yes Neuro Surgical History: No Pertinent History Cardiac: No Pertinent History Respiratory: No Pertinent History Gastrointestinal: No Pertinent History Genitourinary: No Pertinent History Musculoskeletal: Orthopedic Surgery Female Surgical History: No Pertinent History Other Surgical History: right shoulder - Social History Smoking Status: Never smoker Exposure to second hand smoke: No Drug Use: none Patient Lives Alone: Yes - Female History Hx Last Menstrual Period: 2 weeks ago Hx Now: No - Nursing Vital Signs Nursing Vital Signs: Initial Vital Signs Temperature 97.9 F 06/09/19 22:04 Pulse Rate 110 H 06/09/19 22:04 Respiratory Rate 18 06/09/19 22:04 Blood Pressure 146/93 06/09/19 22:04 O2 Sat by Pulse Oximetry 97 06/09/19 22:04 Pain Scale Pain Intensity 0 - Physical Exam General Appearance: no apparent distress Eye Exam: PERRL/EOMI, eyes nml inspection Ears, Nose, Throat Exam: normal ENT inspection, pharynx normal Neck Exam: normal inspection, non-tender, supple Respiratory Exam: normal breath sounds, lungs clear Cardiovascular Exam: regular rate/rhythm, normal heart sounds Gastrointestinal/Abdomen Exam: soft, normal bowel sounds, No tenderness, No distention, No guarding Rectal Exam: normal exam, normal rectal tone, No hemorrhoids, No black stool, No blood, No tenderness, No decreased tone Back Exam: normal inspection Extremity Exam: normal inspection, normal range of motion Neurologic Exam: alert, oriented x 3, cooperative Skin Exam: normal color SpO2 Interpretation: normal SpO2: 97 O2 Delivery: Room Air - Course Nursing assessment & vital signs reviewed: Yes Ordered Tests: Active Orders 24 hr Category Date Time Status CBC W DIFF Stat Lab 06/09/19 22:25 Completed CMP Stat Lab 06/09/19 22:25 Completed HCG,QUALITATIVE URINE Stat Lab 06/09/19 22:26 Completed PROTIME WITH INR Stat Lab 06/09/19 22:25 Completed PTT Stat Lab 06/09/19 22:25 Completed Lab/Rad Data: Laboratory Result Diagrams 06/09/19 22:25 06/09/19 22:25 Laboratory Results 06/09/19 06/09/19 06/09/19 Range/Units 22:26 22:25 22:25 WBC (4.0-10.5) K/mm3 RBC (4.1-5.4) M/mm3 Hgb (12.0-16.0) gm/dl Hct (35-47) % MCV (78-100) fl MCH (26-32) pg MCHC (32-36) g/dl RDW (11.5-14.0) % Plt Count (150-450) K/mm3 MPV (7.5-11.0) fl Gran % (36.0-66.0) % Eos # (Auto) (0-0.5) Absolute Lymphs (auto) (1.0-4.6) Absolute Monos (auto) (0.0-1.3) Lymphocytes % (24.0-44.0) % Monocytes % (0.0-12.0) % Eosinophils % (0.00-5.0) % Basophils % (0.0-0.4) % Absolute Granulocytes (1.4-6.9) Basophils # (0-0.4) PT 13.1 H (9.95-12.35) SECONDS INR 1.16 (0.8-3.0) APTT 37.1 H (25.3-37.0) SECONDS Sodium 141 (137-145) mmol/L Potassium 3.5 (3.5-5.1) mmol/L Chloride 106 (98-107) mmol/L Carbon Dioxide 25 (22-30) mmol/L Anion Gap 12.9 (5-15) MEQ/L BUN 9 (7-17) mg/dL Creatinine 0.59 (0.52-1.04) mg/dL Estimated GFR > 60.0 ML/MIN Glucose 97 (74-106) mg/dL Calcium 9.8 (8.4-10.2) mg/dL Total Bilirubin 0.80 (0.2-1.3) mg/dL AST 24 (14-36) U/L ALT 13 (0-35) U/L Alkaline Phosphatase 72 (38-126) U/L Serum Total Protein 8.2 (6.3-8.2) g/dL Albumin 4.6 (3.5-5.0) g/dL Urine HCG, Qual NEGATIVE (Negative) 06/09/19 Range/Units 22:25 WBC 9.1 (4.0-10.5) K/mm3 RBC 4.97 (4.1-5.4) M/mm3 Hgb 13.8 (12.0-16.0) gm/dl Hct 42.4 (35-47) % MCV 85.3 (78-100) fl MCH 27.8 (26-32) pg MCHC 32.5 (32-36) g/dl RDW 13.6 (11.5-14.0) % Plt Count 192 (150-450) K/mm3 MPV 10.7 (7.5-11.0) fl Gran % 57.8 (36.0-66.0) % Eos # (Auto) 0.05 (0-0.5) Absolute Lymphs (auto) 2.86 (1.0-4.6) Absolute Monos (auto) 0.93 (0.0-1.3) Lymphocytes % 31.3 (24.0-44.0) % Monocytes % 10.2 (0.0-12.0) % Eosinophils % 0.5 (0.00-5.0) % Basophils % 0.2 (0.0-0.4) % Absolute Granulocytes 5.27 (1.4-6.9) Basophils # 0.02 (0-0.4) PT (9.95-12.35) SECONDS INR (0.8-3.0) APTT (25.3-37.0) SECONDS Sodium (137-145) mmol/L Potassium (3.5-5.1) mmol/L Chloride (98-107) mmol/L Carbon Dioxide (22-30) mmol/L Anion Gap (5-15) MEQ/L BUN (7-17) mg/dL Creatinine (0.52-1.04) mg/dL Estimated GFR ML/MIN Glucose (74-106) mg/dL Calcium (8.4-10.2) mg/dL Total Bilirubin (0.2-1.3) mg/dL AST (14-36) U/L ALT (0-35) U/L Alkaline Phosphatase (38-126) U/L Serum Total Protein (6.3-8.2) g/dL Albumin (3.5-5.0) g/dL Urine HCG, Qual (Negative) - Progress Progress: improved, re-examined Progress Note: normal H&H , no abdominal pain or peritoneal signs on repeated eval, no hemorrhoids/fissure. recomended outpatient follow up and may need another colonoscopy 06/09/19 22:52 Counseled pt/family regarding: lab results, diagnosis, need for follow-up - Departure Departure Disposition: Home Clinical Impression: Rectal bleeding IBS (irritable bowel syndrome) Qualifiers: Irritable bowel syndrome type: unspecified Qualified Code(s): K58.9 - Irritable bowel syndrome without diarrhea Condition: Stable Critical Care Time: No Referrals: ISSA GAINES MD [Primary Care Provider] - (1-2 days for re evaluation.) Additional Instructions: take tylenol as needed. take stool softner for constipation, increased fiber in diet. follow up with pcp for re evaluation and colonoscopy. return to ER for any worsening bleed/abdominal pain/gen weakness etc.
[2019-06-09 22:28] LABS: Absolute Neutrophil Ct (ANC) 5.27 (1.4-6.9); BASOPHIL % 0.2 % (0.0-0.4); Basophil (Absolute #) 0.02 (0-0.4); Eosinophil % 0.5 % (0.00-5.0); Eosinophil (Absolute #) 0.05 (0-0.5); Hematocrit 42.4 % (35-47); Hemoglobin 13.8 gm/dl (12.0-16.0); Lymphocyte (Absolute #) 2.86 (1.0-4.6); Lymphocytes % 31.3 % (24.0-44.0); Mean Cell Volume 85.3 fl (78-100); Mean Corpuscular Hemoglobin 27.8 pg (26-32); Mean Corpuscular Hgb Concent. 32.5 g/dl (32-36); Mean Platelet Volume 10.7 fl (7.5-11.0); Monocyte (Absolute #) 0.93 (0.0-1.3); Monocytes % 10.2 % (0.0-12.0); Neutrophil % 57.8 % (36.0-66.0); Platelet Count 192 K/mm3 (150-450); Red Blood Count 4.97 M/mm3 (4.1-5.4); Red Cell Distribution Width 13.6 % (11.5-14.0); White Blood Count 9.1 K/mm3 (4.0-10.5)
[2019-06-09 22:34] LABS: INR 1.16 (0.8-3.0); PROTIME 13.1 SECONDS (9.95-12.35)
[2019-06-09 22:37] LABS: PTT 37.1 SECONDS (25.3-37.0)
[2019-06-09 22:38] LABS: ALBUMIN 4.6 g/dL (3.5-5.0); ALKALINE PHOSPHATASE 72 U/L (38-126); ANION GAP 12.9 MEQ/L (5-15); BLOOD UREA NITROGEN 9 mg/dL (7-17); CHLORIDE 106 mmol/L (98-107); Calcium 9.8 mg/dL (8.4-10.2); Carbon Dioxide 25 mmol/L (22-30); Creatinine 1 0.59 mg/dL (0.52-1.04); Glucose 97 mg/dL (74-106); Potassium 3.5 mmol/L (3.5-5.1); SGOT/AST 24 U/L (14-36); SGPT/ALT 13 U/L (0-35); SODIUM 141 mmol/L (137-145); Total Protein 8.2 g/dL (6.3-8.2)
[2019-06-09 23:00] VITALS: BP 115/90; PULSE 72
== END 2019-06-09 23:00 | disposition home or self-care (01) ==
LOC: ED 21:58
DX: K58.9 Irritable bowel syndrome, unspecified (principal); K62.5 Hemorrhage of anus and rectum; K92.1 Melena
CPT/HCPCS: 36415; 80053; 84703; 85025; 85610; 85730; 99283

== ENCOUNTER 2020-01-31 14:46 | Emergency (ER) | payer OTHER ==
[2020-01-31 15:09] VITALS: BP 132/87; PULSE 130; O2SAT 98
[2020-01-31] MEDS ORDERED: ROCEPHIN 250 MG INJ IM ONE (15:31)
[2020-01-31] MEDS ORDERED: Zithromax 250 MG TABLET PO ONE (15:34)
[2020-01-31] MEDS ORDERED: Rocephin 500 MG INJ ONE (15:36)
[2020-01-31] MEDS ORDERED: ZOVIRAX 200 MG PO ONE (15:36)
[2020-01-31] MEDS ORDERED: Zithromax 250 MG TABLET ONE (15:36)
[2020-01-31] MEDS ORDERED: ZOVIRAX 200 MG ONE (15:43)
--- NOTE | 2020-01-31 15:43 | ERPHSYRPT ---
- History of Present Illness Time Seen by Provider: 01/31/20 15:07 Source: patient Exam Limitations: no limitations Patient Subjective Stated Complaint: Pt states that she has a painful growth for the past couple of days on her left labia that she noticed on Monday and has grown substantially since Triage Nursing Assessment: Pt brought herself to the ER, tachycardic and nervous, painful to sit, painful when urination hits the affected area, denies ever having an abcess before, rates pain 4/10 Physician History: 24 years old female presented in the ER with chief complaint of gradually worsening painful swelling/ulcer on her labia for the last 3 days. Patient reports it initially started about the size of a pea and gradually is increasing with more painful especially with urination and movements. Sexually active with one partner last activity 3 days ago. Denies any history of STDs. No abdominal pain. No vaginal bleeding or discharge. Timing/Duration: day(s) (3), gradual onset, worse Quality: burning Onset Location: vulvar pain Pain Radiation: none Severity of Pain-Max: moderate Severity of Pain-Current: mild Prior abdominal problems: none Modifying Factors: Improves With: rest. Worsens With: movement, urinating Associated Symptoms: dysuria Allergies/Adverse Reactions: Penicillins Allergy (Intermediate, Verified 01/31/20 15:10) Hives Home Medications: [id number] Estr/Ethin Estra [Seasonique 0.15-0.03-0.01 Tab] 1 each PO DAILY 12/17/13 [History] Albuterol 17 gm IH Q4HPRN PRN 12/18/13 [History] Dicyclomine HCl 20 mg [Bentyl 20 mg] 20 mg PO TID 12/01/14 [History] Meloxicam 7.5 mg PO DAILY 01/31/20 [History] Phentermine HCl 37.5 mg PO DAILY 01/31/20 [History] Sertraline HCl 50 mg PO DAILY 01/31/20 [History] Topiramate 50 mg PO DAILY 01/31/20 [History] Hx Tetanus, Diphtheria Vaccination/Date Given: Yes Hx Influenza Vaccination/Date Given: Yes Hx Pneumococcal Vaccination/Date Given: No Travel Risk - International Travel Have you traveled outside of the country in past 3 weeks: No - Coronavirus Screening Are you exhibiting any of the following symptoms?: No Close contact with a COVID-19 positive Pt in past 14-21 Days: No - Review of Systems Eyes: No Symptoms Ears, Nose, & Throat: No Symptoms Respiratory: No Symptoms Abdominal/Gastrointestinal: No Symptoms Genitourinary Symptoms: Dysuria, Other Musculoskeletal: No Symptoms Skin: No Symptoms Neurological: No Symptoms Psychological: No Symptoms Endocrine: No Symptoms Hematologic/Lymphatic: No Symptoms Immunological/Allergic: No Symptoms - Past Medical History Pertinent Past Medical History: Yes Neurological History: Migraines ENT History: No Pertinent History Cardiac History: No Pertinent History Respiratory History: Asthma Endocrine Medical History: No Pertinent History Musculoskeletal History: Fibromyalgia GI Medical History: Irritable Bowel History: No Pertinent History Psycho-Social History: No Pertinent History Female Reproductive Disorders: No Pertinent History - Past Surgical History Past Surgical History: Yes Neuro Surgical History: No Pertinent History Cardiac: No Pertinent History Respiratory: No Pertinent History Gastrointestinal: No Pertinent History Genitourinary: No Pertinent History Musculoskeletal: Orthopedic Surgery Female Surgical History: No Pertinent History Other Surgical History: right shoulder, breast reduction - Social History Smoking Status: Never smoker Exposure to second hand smoke: No Drug Use: none Patient Lives Alone: Yes - Female History Hx Now: No - Nursing Vital Signs Nursing Vital Signs: Initial Vital Signs Temperature 97.4 F 01/31/20 15:00 Pulse Rate 130 H 01/31/20 15:00 Blood Pressure 132/87 01/31/20 15:00 O2 Sat by Pulse Oximetry 98 01/31/20 15:00 Pain Scale Pain Intensity 4 - Physical Exam General Appearance: no apparent distress, alert Eye Exam: PERRL/EOMI Ears, Nose, Throat Exam: pharynx normal Neck Exam: supple, full range of motion Respiratory Exam: normal breath sounds, lungs clear Cardiovascular Exam: regular rate/rhythm, normal heart sounds Gastrointestinal/Abdomen Exam: soft, normal bowel sounds, No tenderness Pelvic Exam: other (Labia 2 small ulcers 0.2 cm each adjacent to each other with some sloughing tissue. Tender to touch. Minimal induration around.), No adnexal tenderness, No cervical motion tenderness, No uterine tenderness Back Exam: normal inspection Extremity Exam: normal inspection Neurologic Exam: alert, oriented x 3, cooperative Lymphatic Exam: adenopathy SpO2: 98 - Course Nursing assessment & vital signs reviewed: Yes Ordered Tests: Medication Summary Discontinued Medications Generic Name Dose Route Start Last Admin Trade Name Freq PRN Reason Stop Dose Admin Acyclovir 400 mg 01/31/20 15:36 01/31/20 15:44 Zovirax 200 Mg PO 01/31/20 15:37 400 mg STAT ONE Administration Acyclovir Confirm 01/31/20 15:43 Zovirax 200 Mg Administered 01/31/20 15:44 Dose 400 mg .ROUTE .STK-MED ONE Azithromycin 1,000 mg 01/31/20 15:34 01/31/20 15:41 Zithromax 250 Mg Tablet PO 01/31/20 15:35 1,000 mg STAT ONE Administration Azithromycin Confirm 01/31/20 15:36 Zithromax 250 Mg Tablet Administered 01/31/20 15:37 Dose 1,000 mg .ROUTE .STK-MED ONE Ceftriaxone Sodium 250 mg 01/31/20 15:31 01/31/20 15:41 Rocephin 250 Mg Inj IM 01/31/20 15:32 250 mg STAT ONE Administration Ceftriaxone Sodium Confirm 01/31/20 15:36 Rocephin 500 Mg Inj Administered 01/31/20 15:37 Dose 500 mg .ROUTE .STK-MED ONE Lab/Rad Data: Laboratory Results 01/31/20 01/31/20 Range/Units 15:34 15:34 Urine Color YELLOW (YELLOW) Urine Appearance CLEAR (CLEAR) Urine pH 6.0 (5-6) Ur Specific [place] 1.006 (1.005-1.025) Urine Protein NEGATIVE (Negative) Urine Ketones SMALL (NEGATIVE) Urine Blood MODERATE (0-5) Kleber/ul Urine Nitrite NEGATIVE (NEGATIVE) Urine Bilirubin NEGATIVE (NEGATIVE) Urine Urobilinogen NEGATIVE (0-1) mg/dL Ur Leukocyte Esterase NEGATIVE (NEGATIVE) Urine WBC (Auto) 3-5 (0-5) /HPF Urine RBC (Auto) NONE (0-2) /HPF U Epithel Cells (Auto) NONE (FEW) /HPF Urine Bacteria (Auto) RARE (NEGATIVE) /HPF Urine Culture Reflexed NO (NO) Urine Glucose NEGATIVE (NEGATIVE) mg/dL Urine HCG, Qual NEGATIVE (Negative) - Progress Progress: unchanged Air Movement: good Progress Note: 01/31/20 15:45 I believe patient has genital herpes and is started on acyclovir. I have also given her a dose of Rocephin and Zithromax. Recommended outpatient primary care follow-up for reevaluation. Discussed signs symptoms of worsening needing return to ER which he seems understanding. She is advised to take Tylenol/ibuprofen. Safe sex practices discussed with patient. Counseled pt/family regarding: lab results, diagnosis, need for follow-up - Departure Departure Disposition: Home Clinical Impression: Genital labial ulcer Condition: Good Critical Care Time: No Referrals: ISSA GAINES MD [Primary Care Provider] - Follow Up with PCP/3 days Instructions: Genital Herpes (DC) Additional Instructions: Do safe sex practices. Follow-up with your primary care for reevaluation. Return to ER for any worsening. Take meloxicam or Tylenol as needed for pain. Prescriptions: Acyclovir 400 mg PO TID #20 tablet
[2020-01-31 16:14] LABS: Appearance CLEAR (CLEAR); Bacteria RARE /HPF (NEGATIVE); Bilirubin NEGATIVE (NEGATIVE); Blood MODERATE Ery/ul (0-5); Glucose NEGATIVE (NEGATIVE); Ketones SMALL (NEGATIVE); Leukocyte Esterase NEGATIVE (NEGATIVE); Nitrite NEGATIVE (NEGATIVE); Protein,Urine Dip NEGATIVE (Negative); Specific Gravity 1.006 (1.005-1.025); Urobilinogen NEGATIVE mg/dL (0-1)
== END 2020-01-31 16:24 | disposition home or self-care (01) ==
LOC: ED 14:46
DX: N76.6 Ulceration of vulva (principal)
CPT/HCPCS: 36415; 81001; 84703; 87491; 87591; 96372; 99284; J0696; A9270-GY

== ENCOUNTER 2020-11-23 19:56 | Emergency (ER) | payer OTHER ==
--- NOTE | 2020-11-23 20:40 | ERPHSYRPT ---
- History of Present Illness Source: patient Exam Limitations: no limitations Patient Subjective Stated Complaint: pt states, "I was wrestling around with my boyfriend and my thumb got bent backwards". Triage Nursing Assessment: pt c/o aching pain to lt thumb, swollen. Pt is able to bend it and move it. Pt was wrestling with her boyfriend and her thumb got bent backwards on his arm. Pt c/o tingling to the lt thumb more than anything. Physician History: L 1st digit got hyper-extended while wrestling w SO. Pt is R handed and denies other/previous injury Occurred: just prior to arrival Method of Injury: twisted Quality: constant Severity of Pain-Max: moderate Severity of Pain-Current: mild Extremities Pain Location: thumb: left Modifying Factors: Improves With: movement Associated Symptoms: No back pain, No chills, No chest discomfort, No chest pain, No dyspnea, No fever, No jaw pain, No nausea, No neck pain, No sweating, No short of breath, No vomiting Allergies/Adverse Reactions: Penicillins Allergy (Intermediate, Verified 11/23/20 20:25) Hives Home Medications: [id number] Estr/Ethin Estra [Seasonique 0.15-0.03-0.01 Tab] 1 each PO DAILY 12/17/13 [History] Albuterol 17 gm IH Q4HPRN PRN 12/18/13 [History] Dicyclomine HCl 20 mg [Bentyl 20 mg] 20 mg PO TID PRN PRN 12/01/14 [History] Meloxicam 7.5 mg PO DAILY PRN PRN 01/31/20 [History] Topiramate 50 mg PO DAILY PRN PRN 01/31/20 [History] Hx Tetanus, Diphtheria Vaccination/Date Given: Yes Hx Influenza Vaccination/Date Given: Yes Hx Pneumococcal Vaccination/Date Given: No Immunizations Up to Date: Yes Travel Risk - International Travel Have you traveled outside of the country in past 3 weeks: No - Coronavirus Screening Close contact with a COVID-19 positive Pt in past 14-21 Days: No - Vaccine Status Have you recieved a Covid-19 vaccination: Yes 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 - Vaccination Dates Date of 2cond Vaccination (if applicable): not yet - Review of Systems Constitutional: No Symptoms Eyes: No Symptoms Ears, Nose, & Throat: No Symptoms Respiratory: No Symptoms Cardiac: No Symptoms Abdominal/Gastrointestinal: No Symptoms Genitourinary Symptoms: No Symptoms Skin: No Symptoms Neurological: No Symptoms Psychological: No Symptoms Endocrine: No Symptoms Hematologic/Lymphatic: No Symptoms Immunological/Allergic: Pollen Allergy - Past Medical History Pertinent Past Medical History: Yes Neurological History: Migraines ENT History: No Pertinent History Cardiac History: No Pertinent History Respiratory History: Asthma Endocrine Medical History: No Pertinent History Musculoskeletal History: Fibromyalgia GI Medical History: Irritable Bowel History: No Pertinent History Psycho-Social History: No Pertinent History Female Reproductive Disorders: No Pertinent History - Past Surgical History Past Surgical History: Yes Neuro Surgical History: No Pertinent History Cardiac: No Pertinent History Respiratory: No Pertinent History Gastrointestinal: No Pertinent History Genitourinary: No Pertinent History Musculoskeletal: Orthopedic Surgery Female Surgical History: No Pertinent History Other Surgical History: right shoulder, breast reduction - Social History Smoking Status: Former smoker Exposure to second hand smoke: No Drug Use: none Patient Lives Alone: No Significant Family History: no pertinent family hx - Female History Hx Now: No - Nursing Vital Signs Nursing Vital Signs: Initial Vital Signs Temperature 98.6 F 11/23/20 20:16 Pulse Rate 115 H 11/23/20 20:16 Respiratory Rate 18 11/23/20 20:16 Blood Pressure 111/82 11/23/20 20:16 O2 Sat by Pulse Oximetry 96 11/23/20 20:16 Pain Scale Pain Intensity 3 Tachycardic - Physical Exam General Appearance: no apparent distress Eyes, Ears, Nose, Throat Exam: normal ENT inspection, TMs normal, pharynx normal, moist mucous membranes Neck Exam: normal inspection, non-tender, supple Cardiovascular/Respiratory Exam: normal breath sounds, tachycardia Back Exam: normal inspection Shoulder Exam: normal inspection Elbow/Forearm Exam: normal inspection Wrist Exam: normal inspection Hand Exam: bone tenderness (L 1st digit ttp laterally/No edema, ecchymosis, or deformity/Minimal pain w abduction-abduction/good distal capillary return and sensation) Neuro/Tendon Exam: normal sensation, normal motor functions, normal tendon functions, responds to pain Mental Status Exam: alert, oriented x 3, cooperative Skin Exam: normal color, warm, dry SpO2 Interpretation: normal SpO2: 97 O2 Delivery: Room Air - Course Nursing assessment & vital signs reviewed: Yes - Radiology Exams Hand X-ray Interpretation: Interpreted by me (L 1st digit neg per ER read) Ordered Tests: Active Orders 24 hr Category Date Time Status FINGER(S) Stat Exams 11/23/20 21:13 Taken - Progress Progress: improved Progress Note: 11/23/20 21:26 L 1st digit most likely w mild sprain/Doubt game keepers thumb as pain lateral and minimal Counseled pt/family regarding: diagnosis, need for follow-up, rad results - Departure Departure Disposition: Home Clinical Impression: Strain of thumb, left Condition: Stable Critical Care Time: No Referrals: ISSA GAINES MD [Primary Care Provider] - Instructions: Hand Pain (DC), Sprained Thumb (DC) Additional Instructions: Ice for 12-24 hours Motrin/Tylenol for pain Follow up with your family MD for continued pain
[2020-11-23 21:15] VITALS: BP 124/79
[2020-11-23 21:35] VITALS: PULSE 94
[2020-11-23 22:47] VITALS: O2SAT 97
--- NOTE | 2020-11-24 08:55 | XRAY ---
Indication: Pain following injury. Comparison: None 3 view left thumb obtained. No bony, articular, or soft tissue abnormalities.
== END 2020-11-23 21:37 | disposition home or self-care (01) ==
LOC: ED 19:56
DX: S63.602A Unspecified sprain of left thumb, initial encounter (principal); X50.9XXA Other and unspecified overexertion or strenuous movements or postures, initial encounter; Y93.72 Activity, wrestling; Y92.89 Other specified places as the place of occurrence of the external cause
CPT/HCPCS: 73140; 99283

== ENCOUNTER 2021-10-12 21:28 | Emergency (ER) | payer OTHER ==
[2021-10-12 21:37] VITALS: O2SAT 99
[2021-10-12] MEDS ORDERED: TORAdol 30 mg Injection IM ONE (21:58)
[2021-10-12] MEDS ORDERED: TORAdol 30 mg Injection ONE (21:59)
--- NOTE | 2021-10-12 22:00 | ERPHSYRPT ---
- History of Present Illness Time Seen by Provider: 10/12/21 21:35 Source: patient Exam Limitations: no limitations Patient Subjective Stated Complaint: I was in the pool and kicked off the bottom of the pool and had pain in my calf immediately Triage Nursing Assessment: Pt was swimming in the pool this evening and kicked off the bottom of the pool, and had immediate pain in her right calf. Pt hobbled into ER, no edema noted, pedal pulse present. Physician History: Patient 26-year-old female presents to our ED with pain to her right calf. Patient states she was swimming in a pool when she kicked off the bottom of the pool and her calf/right lower leg slipped off laterally. Patient felt an immediate pain to the mid substance of her right calf. Injury occurred just prior to arrival. Pain described as ache that is localized to the mid substance of the right calf. Pain worse with dorsiflexion and palpation to the mid substance of the right calf. No knee pain. No other injuries reported. No falls. No BHT or LOC. No hip pain ankle pain or foot pain. Symptoms are mild to moderate in intensity. Movement and palpation worsens symptoms. Pain improved with rest. Patient has not taken any pain medication. Patient denies possibility of . Method of Injury: sports injury Occurred: just prior to arrival Quality: aching Severity of Pain-Max: moderate Severity of Pain-Current: mild Lower Extremities Pain: leg: right Modifying Factors: Improves With: movement Associated Symptoms: none Allergies/Adverse Reactions: Penicillins Allergy (Intermediate, Verified 10/12/21 21:42) Hives Home Medications: l-Norgest/E.estradiol-E.estrad [Seasonique 0.15-0.03-0.01 Tab] 1 each PO DAILY 12/17/13 [History] Albuterol 17 gm IH Q4HPRN PRN 12/18/13 [History] Dicyclomine HCl 20 mg [Bentyl 20 mg] 20 mg PO TID PRN PRN 12/01/14 [History] Amitriptyline HCl 10 mg [Elavil 10 mg] 1 tab PO HS 10/12/21 [History] Hx Tetanus, Diphtheria Vaccination/Date Given: Yes Hx Influenza Vaccination/Date Given: Yes Hx Pneumococcal Vaccination/Date Given: No Immunizations Up to Date: Yes Travel Risk - International Travel Have you traveled outside of the country in past 3 weeks: No - Coronavirus Screening Are you exhibiting any of the following symptoms?: No Close contact with a COVID-19 positive Pt in past 14-21 Days: No - Vaccine Status Have you recieved a Covid-19 vaccination: Yes 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 - Review of Systems Constitutional: No Symptoms, No Fever, No Chills Eyes: No Symptoms Ears, Nose, & Throat: No Symptoms Respiratory: No Symptoms, No Cough, No Dyspnea Cardiac: No Symptoms, No Chest Pain, No Edema, No Syncope Abdominal/Gastrointestinal: No Symptoms, No Abdominal Pain, No Nausea, No Vomiting, No Diarrhea Genitourinary Symptoms: No Symptoms, No Dysuria Musculoskeletal: No Symptoms, No Back Pain, No Neck Pain Skin: No Symptoms, No Rash Neurological: No Symptoms, No Dizziness, No Focal Weakness, No Sensory Changes Psychological: No Symptoms Endocrine: No Symptoms Hematologic/Lymphatic: No Symptoms Immunological/Allergic: No Symptoms All Other Systems: Reviewed and Negative - Past Medical History Pertinent Past Medical History: Yes Neurological History: Migraines ENT History: No Pertinent History Cardiac History: No Pertinent History Respiratory History: Asthma Endocrine Medical History: No Pertinent History Musculoskeletal History: Fibromyalgia GI Medical History: Irritable Bowel History: No Pertinent History Psycho-Social History: Depression Female Reproductive Disorders: No Pertinent History - Past Surgical History Past Surgical History: Yes Neuro Surgical History: No Pertinent History Cardiac: No Pertinent History Respiratory: No Pertinent History Gastrointestinal: No Pertinent History Genitourinary: No Pertinent History Musculoskeletal: Orthopedic Surgery Female Surgical History: No Pertinent History Other Surgical History: right shoulder, breast reduction - Social History Smoking Status: Never smoker Exposure to second hand smoke: Yes Drug Use: none Patient Lives Alone: No Significant Family History: no pertinent family hx - Female History Hx Last Menstrual Period: 10/01/21 Hx Now: Yes - Nursing Vital Signs Nursing Vital Signs: Initial Vital Signs Temperature 97.9 F 10/12/21 21:28 Pulse Rate 121 H 10/12/21 21:28 Respiratory Rate 18 10/12/21 21:28 Blood Pressure 121/92 10/12/21 21:28 O2 Sat by Pulse Oximetry 99 10/12/21 21:28 Pain Scale Pain Intensity 6 - Physical Exam General Appearance: no apparent distress, alert Eyes, Ears, Nose, Throat Exam: normal ENT inspection, TMs normal, pharynx normal, moist mucous membranes Neck Exam: normal inspection, non-tender, supple, full range of motion Cardiovascular/Respiratory Exam: chest non-tender, normal breath sounds, regular rate/rhythm, no respiratory distress Gastrointestinal/Abdominal Exam: non-tender, guarding Back Exam: normal inspection, normal range of motion, No vertebral tenderness Hips Exam: bilateral: non-tender, normal inspection, normal range of motion, no evidence of injury Legs Exam: right leg: pain, soft tissue tenderness (Mid substance right calf point tenderness to palpation. Overlying soft tissue intact. No signs of trauma. Negative Chase test. No involvement of Achilles tendon), left leg: non-tender, normal inspection, normal range of motion, no evidence of injury Knees Exam: bilateral knee: non-tender, normal inspection, normal range of motion, no evidence of injury Ankle Exam: bilateral ankle: non-tender, normal inspection, normal range of motion, no evidence of injury Foot Exam: bilateral foot: non-tender, normal inspection, normal range of motion, no evidence of injury Neuro/Tendon Exam: normal sensation, normal motor functions Mental Status Exam: alert, oriented x 3, cooperative Skin Exam: normal color, warm, dry SpO2 Interpretation: normal SpO2: 99 O2 Delivery: Room Air - Course Nursing assessment & vital signs reviewed: Yes Ordered Tests: Medication Summary Discontinued Medications Generic Name Dose Route Start Last Admin Trade Name Freq PRN Reason Stop Dose Admin Ketorolac Tromethamine 30 mg 10/12/21 21:58 Ketorolac Tromethamine 30 Mg/Ml Inj IM 10/12/21 21:59 STAT ONE - Progress Progress: improved Progress Note: Patient has no bony tenderness. No indication for x-ray. Evaluation and mechanism of injury suggest a muscle strain. There is no palpable breach and muscle fiber. Extremity is neurovascular intact distally. Compartments are soft. Cap refill less than 2 seconds. Patient given IM Toradol. Patient received bilateral axillary crutches and referred to the orthopedic clinic. A work note was also provided to patient. Patient voices no other complaints or concerns at this time. Will discharge home. Portions of this note were created with voice recognition technology. There may be grammatical, spelling, punctuation or sound alike errors 10/12/21 22:08 Counseled pt/family regarding: diagnosis, need for follow-up, rad results - Departure Departure Disposition: Home Clinical Impression: Strain of calf muscle Condition: Stable Critical Care Time: No Referrals: ISSA GAINES MD [Primary Care Provider] - Follow up/PCP as directed Additional Instructions: Discharge/Care Plan MEGHAN ATKINS was seen on 10/12/21 in the Emergency Room. The patient was counseled regarding Diagnosis,Lab results, Imaging studies, need for follow up and when to return to the Emergency Room. Prescriptions given: Discharge Note I have spoken with the patient and/or caregivers. I have explained the patient's condition, diagnosis and treatment plan based on the information available to me at this time. I have answered the patient's and/or caregiver's questions and addressed any concerns. The patient and/or caregivers have as good understanding of the patient's diagnosis, condition and treatment plan as can be expected at this point. The vital signs have been stable. The patient's condition is stable and appropriate for discharge from the emergency department. The patient will pursue further outpatient evaluation with the primary care physician or other designated or consulting physician as outlined in the discharge instructions. The patient and/or caregivers are agreeable to this plan of care and follow-up instructions have been explained in detail. The patient and/or caregivers have received these instruction. The patient/and or caregivers are aware that any significant change in condition or worsening of symptoms should prompt an immediate return to this or the closest emergency department or call 911. Forms: Work/School Release Form Outpatient Orders: Ortho Referral Time Frame: 1 Day, Facility: [facility], Location: [facility]
[2021-10-12 22:18] VITALS: BP 131/91; PULSE 113
== END 2021-10-12 22:12 | disposition home or self-care (01) ==
LOC: ED 21:28
DX: S86.911A Strain of unspecified muscle(s) and tendon(s) at lower leg level, right leg, initial encounter (principal); W22.09XA Striking against other stationary object, initial encounter; Y93.11 Activity, swimming; M79.661 Pain in right lower leg; Z79.899 Other long term (current) drug therapy
CPT/HCPCS: 96372; 99283; J1885

== ENCOUNTER 2025-03-17 08:26 | Day surgery (SDC) | payer OTHER ==
[2025-03-17] MEDS: Lactated Ringers 1,000 ML IV ONE (08:31)
[2025-03-17 08:43] LABS: HCG URINE TEST NEGATIVE (NEGATIVE)
[2025-03-17 08:45] VITALS: RESP 16
[2025-03-17 08:57] LABS: BASOPHIL % 0.5 % (0.1-1.2); Basophil (Absolute #) 0.04 x10^3/uL (0.01-0.08); Eosinophil (Absolute #) 0.05 x10^3/uL (0.04-0.36); Hematocrit 43.0 % (34.1-44.9); Hemoglobin 13.4 g/dL (11.2-15.7); IMMATURE GRAN # 0.03 x10^3u/L (0.001-0.031); IMMATURE GRAN % 0.3 % (0.001-0.429); Lymphocyte (Absolute #) 2.46 x10^3/uL (1.18-3.74); Mean Corpuscular Hemoglobin 28.3 pg (25.6-32.2); Mean Corpuscular Hgb Concent. 31.2 g/dL (32.2-35.5); Monocyte (Absolute #) 0.66 x10^3/uL (0.24-0.86); NUCLEATED RBC # 0.00 x10^3u/L (0.00-0.012); NUCLEATED RBC % 0.0 % (0.00-0.2); Platelet Count 193 x10^3/uL (182-369); Red Blood Count 4.74 x10^6/uL (3.93-5.22); White Blood Count 8.8 x10^3/uL (3.98-10.04)
[2025-03-17] MEDS ORDERED: Lactated Ringers 1,000 ML IV ONE (10:36)
[2025-03-17] MEDS ORDERED: propofoL IV ONE ×2 (10:38→11:02)
[2025-03-17 12:00] VITALS: BP 120/80; PULSE 64; TEMP 97.7; O2SAT 99
--- NOTE | 2025-03-18 12:14 | HP ---
HISTORY OF PRESENT ILLNESS: A 29-year-old with some bright red blood per rectum intermittently, 3 times week per week. She has frequent stools with rare hard bowel movements. Seven bowel movements today, more at times. Some mid lower abdominal cramps or spasm. Last colonoscopy 11 years ago was negative, according to the patient. Family history, grandfather had colon cancer. PAST MEDICAL HISTORY: Depression. HOME MEDICATIONS: Duloxetine. ALLERGIES: Penicillin. PAST SURGICAL HISTORY: Breast reduction and 2 shoulder surgeries in the past on the right. SOCIAL HISTORY: No smoking. No alcohol abuse. FAMILY HISTORY: Heart disease and MS, and also a grandfather with colon cancer. REVIEW OF SYSTEMS: Twelve systems reviewed. No chest pain or palpitations. Other systems negative or noncontributory as noted above and per preadmission questionnaire. PHYSICAL EXAMINATION: GENERAL: Height 5 feet 4 inches. BMI 31.58. No acute distress. HEENT: Sclerae nonicteric. NECK: No JVD. CARDIOVASCULAR: Regular rate and rhythm. RESPIRATORY: Equal excursion, nonlabored breathing. SKIN: Dry. NEUROLOGIC: Alert and oriented. PSYCHIATRIC: Appropriate mood and affect. RECTAL: Deferred until time of endoscopy exam. IMPRESSION: Rectal bleeding, change in bowel habits, frequent bowel movements. Recommend colonoscopy to evaluate for colitis, neoplasia or other etiology. She is also having mid lower epigastric aches. Recommend EGD to evaluate for peptic ulcer disease or other etiology. Risk sheet was shown. General risk of bleeding and infection; risk of bowel injury or perforation possibly requiring open procedure; risk of missed or nondiagnosis or incomplete exam possibly requiring barium enema or other studies or procedures; general risk of anesthesia or sedation; risk of bowel prep, but not limited to. Consent was obtained. Will proceed with colonoscopy and EGD under MAC anesthesia as an outpatient.
--- NOTE | 2025-03-19 09:18 | OP ---
SURGERY DATE/TIME: 03/17/2025 [id number] PREOPERATIVE DIAGNOSES: 1) Some mid upper abdominal pain. 2) Rectal bleeding. POSTOPERATIVE DIAGNOSES: 1) Some gastritis. 2) Minimal erythema of the distal esophagus. 3) Vague raised area versus hyperplasia versus some lymphocytic hyperplasia in the rectum. 4) Fair bowel prep. 5) ASA class 2. 6) Withdrawal time approximately 10 minutes. PROCEDURE: 1) Esophagogastroduodenoscopy with cold biopsy of small bowel to evaluate for celiac sprue, cold biopsy of antrum to evaluate for H pylori, cold biopsy of distal esophagus to evaluate for early esophagitis. 2) Colonoscopy to the cecum with random cold biopsies of colon to evaluate for microscopic colitis. 3) Hot biopsy of patchy area of inflammation versus lymphoid hyperplasia of the proximal rectum. 4) Hot biopsy of patchy inflammation versus lymphoid hyperplasia more distal area of rectum. SURGEON: Torey Torres MD ANESTHESIA: MAC. ESTIMATED BLOOD LOSS: Minimal. INDICATIONS: Consent was obtained. DESCRIPTION OF PROCEDURE AND FINDINGS: Patient was taken to the operating room. MAC anesthesia induced. After official time-out and no disagreement in planned procedure. Otherwise, scope passed down the esophagus through the patent pylorus to the junction of the third and fourth portions of duodenum. Duodenum unremarkable. Cold biopsy was taken to evaluate for celiac sprue. Good hemostasis noted. Scope pulled back into the stomach. Cold biopsy taken to evaluate for H pylori. She had minimal amount of gastritis. No signs of any gross ulcers right now. On retroflexion, GE junction was snugged against the scope. Scope pulled back to GE junction. Z-line was fairly crisp. There was a little bit of mild erythema or early inflammation of the distal esophagus. Cold biopsy taken. Remainder of esophagus grossly unremarkable. Scope was withdrawn. Patient tolerated the procedure well. Attention then turned to the colonoscopy. On digital rectal exam, she had minimal internal hemorrhoids. Videocolonoscope inserted, was passed around, slightly tortuous colon around to transverse, ascending colon and cecum. Appendiceal orifice and valve photo documented. Prep overall was fair. A little semi-liquidy stool throughout the colon just slightly limiting the exam for small lesions. Scope was slowly and carefully withdrawn. Random cold biopsies taken of the colon to evaluate for any microscopic colitis as the source of her vague mid to upper abdominal pain. Otherwise, scope pulled back around to the raised area in the proximal rectum, whether this was early inflammation versus lymphoid hyperplasia. Hot biopsy taken of this area. Good hemostasis noted. Scope pulled back to more distal rectum. There was some patchy area of inflammation versus lymphoid hyperplasia. It was biopsied with hot biopsy forceps. Good hemostasis noted. Scope was withdrawn. Again, the patient had some very small hemorrhoids. She was not having any major active bleeding. Question whether this inflammation in the distal rectum could cause some of her bleeding or not. Biopsies pending. There was no immediate complication. No signs of any large polyps, masses, or obstructing lesions. The small hemorrhoids did not warrant any intervention.
== END 2025-03-17 12:06 | disposition home or self-care (01) ==
LOC: SDC 08:26
PROVIDERS: ATTEND Surgery
DX: K29.70 Gastritis, unspecified, without bleeding (principal); K62.5 Hemorrhage of anus and rectum; R10.10 Upper abdominal pain, unspecified; Z80.0 Family history of malignant neoplasm of digestive organs; K20.90 Esophagitis, unspecified without bleeding; K63.5 Polyp of colon; K64.8 Other hemorrhoids